=== PATIENT | male | born 1995 | race Caucasian/White ===

== ENCOUNTER 2019-01-22 15:43 | Inpatient (IN) | payer OTHER ==
[~2019-01-22] VITALS: Ht 190.5 cm; Wt 103.9 kg
[2019-01-22 15:48] VITALS: Ht 190.5 cm; Wt 103.9 kg
[2019-01-22 19:27] LABS: CALCIUM 8.9 mg/dL (8.5-10.1); CARBON DIOXIDE 29.8 mmol/L (21-32); CHLORIDE SERUM 102 mmol/L (98-107); CREATININE SERUM 1.1 mg/dL (0.7-1.3); GFR1 > 60 mL/min; GLUCOSE SERUM 96 mg/dL (74-106); POTASSIUM SERUM 3.6 mmol/L (3.5-5.1); SODIUM SERUM 141 mmol/L (136-145)
[2019-01-22 19:32] LABS: ALBUMIN 4.3 g/dL (3.4-5.0); ALKALINE PHOSPHATASE 83 U/L (46-116); ALT/SGPT 26 U/L (16-63); AST/SGOT 15 U/L (15-37); BILIRUBIN TOTAL 0.6 mg/dL (0.20-1.00); TOTAL PROTEIN, SERUM 7.6 g/dL (6.4-8.2)
[2019-01-22 19:33] LABS: BASOPHIL % 0.3 % (0-2); PLATELET COUNT 208 x10^3mcL (130-400); RED CELL DISTRIBUTION WIDTH 13.2 % (11.5-14.5)
[2019-01-22 19:45] LABS: LIPASE 1462 IU/L (73-393)
[2019-01-22 20:04] LABS: UA SPECIFIC GRAVITY 1.025 (1.005-1.035); microscopic required? YES
[2019-01-22 20:05] LABS: urine erythrocyte TRACE (NEGATIVE)
[2019-01-22 20:21] LABS: AMPHETAMINE QUAL UR NONE DETECTED (See below)
[2019-01-22 21:41] LABS: CHOLESTEROL/HDL RATIO 4.3; MAGNESIUM 2.1 mg/dL (1.8-2.4); PHOSPHOROUS 3.1 mg/dL (2.5-4.9)
[2019-01-22 21:47] LABS: T3 TOTAL 1.22 ng/mL
[2019-01-22 21:53] VITALS: BP 126/59
[2019-01-22 22:28] LABS: FREE T4 1.06 ng/dL (0.76-1.46); FREE THYROXINE INDEX 2.4 ug/dL (1.4-4.5); T4(THYROXINE) 6.7 ug/dL (4.7-13.3)
[2019-01-23 06:08] VITALS: BP 96/44
[2019-01-23 07:09] LABS: BASOPHIL % 0.3 % (0-2); PLATELET COUNT 198 x10^3mcL (130-400)
[2019-01-23 07:24] LABS: CALCIUM 8.2 mg/dL (8.5-10.1); CHLORIDE SERUM 108 mmol/L (98-107); CREATININE SERUM 1.1 mg/dL (0.7-1.3); GFR1 > 60 mL/min; GLUCOSE SERUM 84 mg/dL (74-106); LACTIC DEHYDROGENASE (LDH) 148 U/L (100-190); LIPASE 112 IU/L (73-393); SODIUM SERUM 143 mmol/L (136-145)
[2019-01-23 10:37] VITALS: BP 116/58
[2019-01-23 16:38] VITALS: BP 126/44
[2019-01-23 19:54] VITALS: BP 141/55
[2019-01-24 05:04] VITALS: BP 111/48
[2019-01-24 06:34] LABS: BASOPHIL % 0.7 % (0-2); PLATELET COUNT 203 x10^3mcL (130-400); RED CELL DISTRIBUTION WIDTH 13.3 % (11.5-14.5)
[2019-01-24 06:55] LABS: CALCIUM 8.5 mg/dL (8.5-10.1); CARBON DIOXIDE 29.6 mmol/L (21-32); CHLORIDE SERUM 106 mmol/L (98-107); CREATININE SERUM 1.1 mg/dL (0.7-1.3); GFR1 > 60 mL/min; GLUCOSE SERUM 87 mg/dL (74-106); LIPASE 111 IU/L (73-393); POTASSIUM SERUM 4.1 mmol/L (3.5-5.1); SODIUM SERUM 143 mmol/L (136-145)
[2019-01-24 08:42] VITALS: BP 127/60
[2019-01-24 11:20] VITALS: BP 127/60
== END 2019-01-24 12:55 | disposition home or self-care (01) | DRG 282 ==
LOC: ED 15:43 → MU 20:18
PROVIDERS: Emergency Medicine; Internal Medicine; ADMIT General Practice
DX: K85.90 Acute pancreatitis without necrosis or infection, unspecified (principal); N17.0 Acute kidney failure with tubular necrosis; F17.210 Nicotine dependence, cigarettes, uncomplicated; K65.9 Peritonitis, unspecified; R80.9 Proteinuria, unspecified
CPT/HCPCS: 84439; G0480; J0500; J2270; J2405; J3490; J7030